=== PATIENT | male | born 1985 | race Caucasian/White ===

== ENCOUNTER 2023-06-06 10:55 | Emergency (ER) | payer OTHER ==
[~2023-06-06] VITALS: Ht 177.8 cm; Wt 117.9 kg
[~2023-06-06 10:55] MED LIST: AMOCLA875 PO; AZIT250 PO; CEPH500 PO; DOXY100 PO; HYDACE5 PO; IBUP800 PO; MECL25 PO; Naprosyn500 MG PO; Norco 5-325 Ta1 EACH PO; OSEL75CA PO; PENVK500 PO; PROM25 PO; RANI150; RXHYDGUAS PO; RXONDA4ODT MM; Robaxin500 MG PO; SERT100; TRAZ50; VALA500 PO
[2023-06-06 11:13] VITALS: BP 144/92
== END 2023-06-06 12:45 | disposition home or self-care (01) ==
LOC: ER 10:55
DX: S61.211A Laceration without foreign body of left index finger without damage to nail, initial encounter (principal); S60.222A Contusion of left hand, initial encounter; F17.210 Nicotine dependence, cigarettes, uncomplicated; Z79.899 Other long term (current) drug therapy; Z88.1 Allergy status to other antibiotic agents; Z88.5 Allergy status to narcotic agent; W23.0XXA Caught, crushed, jammed, or pinched between moving objects, initial encounter; Y92.812 Truck as the place of occurrence of the external cause; Y93.89 Activity, other specified
CPT/HCPCS: 12001; 73130; 99283-25